=== PATIENT | female | born 1965 | race Caucasian/White ===

== ENCOUNTER 2019-10-27 08:51 | Day surgery (SDC) | payer BC ==
[~2019-10-27 08:51] MED LIST: Lactated Ringers 1,000 ML IV SCH; Lidocaine 1% 10 ML MDV INJECT ONE; Lidocaine 1%/Sod Bicarbonate in NS 8.4% 1 ML Syringe IDERM PRN; Sodium Chloride 0.9% 10 ML Syringe FLUSH PRN
[2019-10-27] MEDS ORDERED: Bupivacaine 0.5%/EPINEPHrine 1:200,000 50 ML MDV ONE (10:04)
--- NOTE | 2019-10-27 10:28 | PCM.HP.2 ---
H&P History of Present Illness - General Date of Service: 10/27/19 Admit Problem/Dx: atypical ductal hyperplasia, left breast Source of Information: Patient History Limitations: Reports: No Limitations - History of Present Illness Initial Comments - Free Text/Narative: Ms. Armendariz was seen in clinic a few months ago with abnormal screening mammogram. Since then, a sterotactic core needle biopsy was obtained, revealing atypical ductal hyperplasia. She presents as scheduled for left tylectomy. Left Breast Pain Score (Numeric/FACES): 0 - Related Data Allergies/Adverse Reactions: Allergies Allergy/AdvReac Type Severity Reaction Status Date / Time No Known Allergies Allergy Verified 10/26/19 17:46 Home Medications: Home Meds Brimonidine Tartrate [Lumify] 1 drop EYEBOTH BID 10/26/19 [History] Calcium Carbonate [Calcium] 500 mg PO DAILY 10/26/19 [History] Fish Oil/[place]ef[place]-3 Fatty Acids [Fish Oil 1,000 MG] 1 gm PO DAILY 10/26/19 [History ] Potassium Gluconate [Potassium] 99 mg PO DAILY 10/26/19 [History] SUMAtriptan Succinate [Imitrex] 100 mg PO ASDIRECTED PRN 10/26/19 [History] busPIRone [Buspar] 10 mg PO DAILY PRN 10/26/19 [History] Lactobacillus Combo No.10 [Probiotic] 1 tab PO DAILY 10/27/19 [History] Multivitamin [Multivitamins] 1 tab PO DAILY 10/27/19 [History] Past Medical History HEENT History: Reports: 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) Other HEENT History: dry eyes Cardiovascular History: Reports: High Cholesterol Respiratory History: Reports: None Gastrointestinal History: Reports: None Genitourinary History: Reports: Urinary Incontinence Other Genitourinary History: cystitis, dysuria 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: , 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) Other OB/BYN History: 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, , BV Musculoskeletal History: Reports: None Neurological History: Reports: None Psychiatric History: Reports: None Endocrine/Metabolic History: Reports: None Other Endocrine/Metabolic History: excess body and facial hair Hematologic History: Reports: None Immunologic History: Reports: None Oncologic (Cancer) History: Reports: None Dermatologic History: Reports: None - Past Surgical History Head Surgeries/Procedures: Reports: None HEENT Surgical History: Reports: Oral Surgery Cardiovascular Surgical History: Reports: None Respiratory Surgical History: Reports: None GI Surgical History: Reports: None Female Surgical History: Reports: Breast Biopsy Neurological Surgical History: Reports: None Musculoskeletal Surgical History: Reports: None Oncologic Surgical History: Reports: None Dermatological Surgical History: Reports: None Social & Family History - Tobacco Use Smoking Status *Q: Former Smoker Used Tobacco, but Quit: Yes Month/Year Tobacco Last Used: 10/05/19 - Caffeine Use Caffeine Use: Reports: None - Alcohol Use Days Per Week of Alcohol Use: 3 Number of Drinks Per Day: 2 Total Drinks Per Week: 6 - Recreational Drug Use Recreational Drug Use: No Drug Use in Last 12 Months: No H&P Review of Systems - Review of Systems: Review Of Systems: See Below General: Reports: No Symptoms HEENT: Reports: No Symptoms Pulmonary: Reports: No Symptoms Cardiovascular: Reports: No Symptoms Gastrointestinal: Reports: No Symptoms Genitourinary: Reports: No Symptoms Musculoskeletal: Reports: No Symptoms Skin: Reports: Bruising, Lumps Psychiatric: Reports: No Symptoms Neurological: Reports: No Symptoms Hematologic/Lymphatic: Reports: Easy Bruising Immunologic: Reports: No Symptoms Exam - Exam Exam: See Below - Vital Signs Vital Signs: Last Vital Signs Temp 37.4 C 10/27/19 09:05 Pulse 81 10/27/19 09:05 Resp 16 10/27/19 09:05 BP 117/96 H 10/27/19 09:05 Pulse Ox 98 10/27/19 09:05 Weight: 51.71 kg - Exam General: Alert, Oriented HEENT: Conjunctiva Clear Neck: Supple Lungs: Clear to Auscultation, Normal Respiratory Effort Cardiovascular: Regular Rate, Regular Rhythm GI/Abdominal Exam: Soft (Female) Exam: Deferred Rectal (Female) Exam: Deferred Back Exam: Normal Inspection Extremities: Normal Inspection Skin: Warm, Dry, Intact, Other (left breast core biopsy site with some induration) Psychiatric: Alert, Normal Affect Sepsis Event Note - Evaluation Sepsis Screening Result: No Definite Risk - Focused Exam Vital Signs: Vital Signs Temp Pulse Resp BP Pulse Ox 10/27/19 09:05 37.4 C 81 16 117/96 H 98 Date Exam was Performed: 10/27/19 Time Exam was Performed: 10:24 *Q Meaningful Use (ADM) - VTE Risk Assess *Q Each Risk Factor Represents 1 Point: Age 41 - 59 years, Minor Surgery Planned Total Score 1 Point Risk Factors: 2 Problem List Initiated/Reviewed/Updated: Yes Orders Last 24hrs: Active Orders 24 hr Category Date Time Status Peripheral IV Care [RC] . DIRECTED Care 10/27/19 00:01 Active Verify Patient Consent Obtain [RC] ASDIRECTED Care 10/27/19 00:01 Active Guide Ndl Wire Loc LT [MY] Routine Exams 10/27/19 Ordered Lactated Ringers [Ringers, Lactated] 1,000 ml Med 10/27/19 00:01 Active IV ASDIRECTED Lidocaine 1%/Sod Bicarbonate [Buffered Lidocaine 1% in Med 10/27/19 00:01 Active NS 8.4%] 0.25 ml IDERM ONETIME PRN Sodium Chloride 0.9% [Saline Flush] Med 10/27/19 00:01 Active 10 ml FLUSH ASDIRECTED PRN Medication Administration Instruction [OM.PC] Routine Oth 10/27/19 00:01 Ordered Peripheral IV Insertion Adult [OM.PC] Routine Oth 10/27/19 00:01 Ordered Medication Orders Lactated Ringer's (Ringers, Lactated) 1,000 mls @ 125 mls/hr IV ASDIRECTED [place] Last Admin: 10/27/19 09:20 Dose: 125 mls/hr Lidocaine/Sodium Bicarbonate (Buffered Lidocaine 1% In Ns 8.4%) 0.25 ml IDERM ONETIME PRN PRN Reason: Prior to IV Start Last Admin: 10/27/19 09:19 Dose: 0.25 ml Sodium Chloride (Saline Flush) 10 ml FLUSH ASDIRECTED PRN PRN Reason: Keep Vein Open Assessment/Plan Comment:: Atyplical ductal hyperplasia, left breast, with another focus of microcalcifications noted in the left breast during core biopsy imaging. Plan for needle-localized partial mastectomy x 2 in left breast today. - Mortality Measure Prognosis:: Good
[2019-10-27] MEDS ORDERED: Lidocaine 1% 4 ML ONE (10:39)
[2019-10-27] MEDS ORDERED: Propofol 200 MG/20 ML SDV ONE ×3 (10:39→14:18)
[2019-10-27] MEDS ORDERED: fentaNYL 100 MCG/2 ML SDV ONE ×3 (10:41→12:21)
[2019-10-27] MEDS ORDERED: Midazolam 1 MG/ML 2 ML SDV ONE ×2 (10:42→11:06)
--- NOTE | 2019-10-27 10:57 | PCM.PREANE ---
Preanesthetic Assessment - Anesthesia/Transfusion/Family Hx Anesthesia History: Prior Anesthesia Without Reaction Family History of Anesthesia Reaction: No Transfusion History: No Prior Transfusion(s) - Review of Systems General: No Symptoms Pulmonary: No Symptoms Cardiovascular: No Symptoms Gastrointestinal: No Symptoms Neurological: No Symptoms Other: Reports: None - Physical Assessment NPO Status Date: 10/26/19 NPO Status Time: 23:00 Vital Signs: Last Vital Signs Temp 37.4 C 10/27/19 09:05 Pulse 81 10/27/19 09:05 Resp 16 10/27/19 09:05 BP 117/96 H 10/27/19 09:05 Pulse Ox 98 10/27/19 09:05 Height: 1.63 m Weight: 51.71 kg ASA Class: 1 Mental Status: Alert & Oriented x3 Airway Class: Mallampati = 2 Dentition: Reports: Normal Dentition Thyro-Mental Finger Breadths: 3 Mouth Opening Finger Breadths: 3 ROM/Head Extension: Full Lungs: Clear to Auscultation, Normal Respiratory Effort Cardiovascular: Regular Rate, Regular Rhythm - Allergies Allergies/Adverse Reactions: Allergies Allergy/AdvReac Type Severity Reaction Status Date / Time No Known Allergies Allergy Verified 10/26/19 17:46 - Acknowledgements Anesthesia Type Planned: MAC Pt an Appropriate Candidate for the Planned Anesthesia: Yes Alternatives and Risks of Anesthesia Discussed w Pt/Guardian: Yes Pt/Guardian Understands and Agrees with Anesthesia Plan: Yes PreAnesthesia Questionnaire HEENT History: Reports: 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) Other HEENT History: dry eyes Cardiovascular History: Reports: High Cholesterol Respiratory History: Reports: None Gastrointestinal History: Reports: None Genitourinary History: Reports: Urinary Incontinence Other Genitourinary History: cystitis, dysuria [employer]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: , 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) Other OB/BYN History: 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, , BV Musculoskeletal History: Reports: None Neurological History: Reports: None Psychiatric History: Reports: None, Anxiety Endocrine/Metabolic History: Reports: None Other Endocrine/Metabolic History: excess body and facial hair Hematologic History: Reports: None Immunologic History: Reports: None Oncologic (Cancer) History: Reports: None Dermatologic History: Reports: None - Past Surgical History Head Surgeries/Procedures: Reports: None HEENT Surgical History: Reports: Oral Surgery Cardiovascular Surgical History: Reports: None Respiratory Surgical History: Reports: None GI Surgical History: Reports: None Female Surgical History: Reports: Breast Biopsy Neurological Surgical History: Reports: None Musculoskeletal Surgical History: Reports: None Oncologic Surgical History: Reports: None Dermatological Surgical History: Reports: None - SUBSTANCE USE Smoking Status *Q: Former Smoker Days Per Week of Alcohol Use: 3 Number of Drinks Per Day: 2 Total Drinks Per Week: 6 Recreational Drug Use History: No - HOME MEDS Home Medications: Home Meds Brimonidine Tartrate [Lumify] 1 drop EYEBOTH BID 10/26/19 [History] Calcium Carbonate [Calcium] 500 mg PO DAILY 10/26/19 [History] Fish Oil/[place]-3 Fatty Acids [Fish Oil 1,000 MG] 1 gm PO DAILY 10/26/19 [History ] Potassium Gluconate [Potassium] 99 mg PO DAILY 10/26/19 [History] SUMAtriptan Succinate [Imitrex] 100 mg PO ASDIRECTED PRN 10/26/19 [History] busPIRone [Buspar] 10 mg PO DAILY PRN 10/26/19 [History] Lactobacillus Combo No.10 [Probiotic] 1 tab PO DAILY 10/27/19 [History] Multivitamin [Multivitamins] 1 tab PO DAILY 10/27/19 [History] - CURRENT (IN HOUSE) MEDS Current Meds: Current Medications Lactated Ringer's (Ringers, Lactated) 1,000 mls @ 125 mls/hr IV ASDIRECTED [place] Last Admin: 10/27/19 09:20 Dose: 125 mls/hr Lidocaine/Sodium Bicarbonate (Buffered Lidocaine 1% In Ns 8.4%) 0.25 ml IDERM ONETIME PRN PRN Reason: Prior to IV Start Last Admin: 10/27/19 09:19 Dose: 0.25 ml Sodium Chloride (Saline Flush) 10 ml FLUSH ASDIRECTED PRN PRN Reason: Keep Vein Open Discontinued Medications Bupivacaine HCl/Epinephrine Bitart (Marcaine 0.5%/Epinephrine 1:200,000) Confirm Administered Dose 50 ml .ROUTE .STK-MED ONE Stop: 10/27/19 10:05 Fentanyl (Sublimaze) Confirm Administered Dose 100 mcg .ROUTE .STK-MED ONE Stop: 10/27/19 10:42 Lidocaine HCl (Xylocaine-Mpf 1%) Confirm Administered Dose 4 mls @ as directed .ROUTE .STK-MED ONE Stop: 10/27/19 10:40 Lidocaine HCl (Xylocaine 1%) 20 ml INJECT ONETIME ONE Stop: 10/27/19 08:39 Midazolam HCl (Versed 1 Mg/Ml) Confirm Administered Dose 2 mg .ROUTE .STK-MED ONE Stop: 10/27/19 10:43 Propofol (Diprivan 20 Ml) Confirm Administered Dose 200 mg .ROUTE .STK-MED ONE Stop: 10/27/19 10:40
[2019-10-27] MEDS ORDERED: ceFAZolin 1 GM Vial ONE ×2 (11:01→13:44)
[2019-10-27] MEDS ORDERED: Lactated Ringers 1,000 ML ONE ×2 (11:44→14:06)
[2019-10-27] MEDS ORDERED: Ondansetron 4 MG/2 ML SDV ONE (11:48)
--- NOTE | 2019-10-27 12:37 | MY ---
Specimen radiograph: Single specimen radiograph was obtained of the medial lesion that was localized. Vague calcifications are noted within the specimen. These are felt to correlate to the area that was localized. Spring-hook wire is in place. Impression: 1. Findings are felt compatible with successful surgical biopsy of localized medial lesion. Diagnostic code #2 This report was dictated in [place] Standard Time
--- NOTE | 2019-10-27 13:25 | PCM48HPAN ---
Post Anesthesia Note - EVALUATION WITHIN 48HRS OF ANESTHETIC Vital Signs in Normal Range: Yes Patient Participated in Evaluation: Yes Respiratory Function Stable: Yes Airway Patent: Yes Cardiovascular Function Stable: Yes Hydration Status Stable: Yes Pain Control Satisfactory: Yes Nausea and Vomiting Control Satisfactory: Yes Mental Status Recovered: Yes Vital Signs: Last Vital Signs Temp 37.4 C 10/27/19 09:05 Pulse 81 10/27/19 09:05 Resp 16 10/27/19 09:05 BP 117/96 H 10/27/19 09:05 Pulse Ox 98 10/27/19 09:05
--- NOTE | 2019-10-27 13:28 | PCM.PRNOTE ---
- Free Text/Narrative Note: Date: 10/27/2019 Operation: needle localized partial mastectomy, left breast Surgeon: Sorin Mariee MD Findings: medial localized lesion successfully excised based on specimen mammogram. Lateral lesion excised with ample tissue surrounding the thickened portion of the needle; no clip from core biopsy was seen in specimen, or additional tissue taken after initial specimen mammography. Specimens were sent to pathology, marked with short stitch at superior aspect and long stitch at lateral aspect. Detailed Report: The patient was taken to the operating room and placed in supine position. Timeout was performed, and monitored anesthesia care was initiated. The left chest was prepped and draped in usual sterile fashion. 0.5% Marcaine with epinephrine was injected intradermally at the interface of the area Alexus and skin of the left breast. A circumareolar incision along the superior portion of the needle was made using the knife. Skin flaps were raised, tracking toward the medial needle localization. Once the needle was identified in the subcutaneous plane, the needle was brought through the skin and into the dissection field. Circumferential dissection was carried down along the length of the needle until the thickened portion was identified. Adequate surrounding tissue was excised with the needle, and the specimen was oriented with a silk stitch placed at the superior aspect and cut short. A long silk stitch was placed to rosmery the lateral aspect. Specimen mammography showed successful excision of the microcalcifications seen in the medial aspect of the breast. Next, attention was turned to the lateral needle localization. In similar fashion, the subcutaneous plane was developed until the needle was identified. The needle was brought through the skin into the dissection field, and circumferential dissection was carried along the needle localization until the thickened portion of the needle was identified. A substantial amount of breast tissue surrounding this portion of the needle was excised and sent for specimen mammography. The initial specimen mammography did not identify the clip from prior core biopsy. Additional tissue was taken at the inferior and lateral portions of the dissection. Again, the clip was not identified on specimen mammography. Rather than taking additional breast tissue, I opted for closure, with plan for close follow-up with repeat imaging. Wound was thoroughly irrigated with warm saline solution, and meticulous hemostasis was achieved using the monopolar energy. Convinced that there is no hemorrhage, the wound was then closed in layers with deep dermal stitches at the deep dermal layer, and running absorbable stitch at the subcuticular layer. The wound was dressed with Dermabond, and a compressive dressing was applied. The patient tolerated the procedure well, no complications. Sorin Mariee MD General Surgery
[2019-10-27 15:38] VITALS: BP 123/95; PULSE 71
--- NOTE | 2019-10-31 07:06 | MY ---
Needle localization: Procedure was explained to the patient. Vague area of calcifications were localized within the medial left breast. Patient was prepped in the usual fashion. Needle was placed and confirmed in position. Spring-hook wire then placed. Second previously biopsied area was localized by stereotactic clip. Needle was placed and spring-hook wire placed. Specimen radiographs were obtained. Two samples were obtained of the lateral breast which does not show the stereotactic marking clip. It was relayed to the performing surgeon that if biopsy cavity was removed, can await for pathology results and if findings are not upgraded in severity from previous biopsy, breast MRI can then be considered in 6 months to allow for postsurgical change to resolve. Medial specimen radiograph was dictated on separate exam. Impression: 1. Findings and recommendation as noted above.
--- NOTE | 2019-10-31 07:06 | MY ---
This study was dictated on previous exam.
--- NOTE | 2019-10-31 07:06 | MY ---
Specimen radiographs. Sample was obtained with spring-hook wire in place. Stereotactic marking clip is not seen on this exam. Please see previous report for recommendations. Diagnostic code #2 This report was dictated in [place] Standard Time
--- NOTE | 2019-10-31 07:06 | MY ---
This study was dictated as part of other dictation.
== END 2019-10-27 14:47 | disposition home or self-care (01) ==
LOC: JD.SDS 08:51
PROVIDERS: ATTEND Surgery
DX: N60.12 Diffuse cystic mastopathy of left breast (principal); N64.1 Fat necrosis of breast; E78.00 Pure hypercholesterolemia, unspecified; F41.9 Anxiety disorder, unspecified; Z87.891 Personal history of nicotine dependence; Z79.899 Other long term (current) drug therapy
CPT/HCPCS: 19281; 19282; 19283; 19301; 76098; J0690; J2001; J2250; J2405; J2704; J3010; J3490; J7120; 00400